=== PATIENT | female | born 1940 | race Caucasian/White ===

== ENCOUNTER 2024-08-15 04:28 | Emergency (ER) | payer MEDICARE, OTHER ==
[~2024-08-15] VITALS: Ht 165.1 cm; Wt 67.5 kg
[2024-08-15] MEDS ORDERED: OMEPRAZOLE20 MG PO (05:55)
[2024-08-15] MEDS ORDERED: ATORVASTATIN CA80 MG PO (05:55)
[2024-08-15] MEDS ORDERED: CALCIUM 600 MG1 EAC8 PO (05:55)
[2024-08-15] MEDS ORDERED: LOSARTAN POTAS100 MG PO (05:55)
[2024-08-15] MEDS ORDERED: LEVOTHYROXINE50 MCG PO (05:55)
[2024-08-15 05:56] LABS: BILIRUBIN, URINE NEGATIVE (negative); BLOOD/HGB, URINE TRACE-I (Negative); KETONE, URINE NEGATIVE (Negative); LEUK ESTERASE, URINE MODERATE (negative); NITRITE, URINE NEGATIVE (negative); PH, URINE 6.5 (5-7)
[2024-08-15] MEDS ORDERED: QUETIAPINE FUMA50 MG PO (05:56)
[2024-08-15] MEDS ORDERED: VITAMIN B-121000 MC1 PO (05:56)
[2024-08-15 06:13] LABS: CASTS, URINE NONE SEEN \\lpf; CRYSTALS, URINE NONE SEEN (0-1+); EPITHELIAL CELLS, URINE SQUAMOUS 2+ /lpf (0-1+); RED BLOOD CELLS, URINE 0-1 /hpf (0-5); WHITE BLOOD CELLS, URINE 41-50 /HPF (0-5)
[2024-08-15 06:14] LABS: BACTERIA, URINE 2+ /hpf (negative); COLLECTION TYPE, URINE CLEAN CATCH; REFLEX CULTURE, URINE No (No)
[2024-08-15] MEDS ORDERED: MACROBID 100 M100 MG PO (06:25)
[2024-08-15] MEDS ORDERED: NITROFURANTOIN MONOHYD MACROCR 100 MG CAP PO ONE (06:30)
[2024-08-15 09:26] VITALS: BP 134/82
== END 2024-08-15 09:26 ==
LOC: ED 04:28
PROVIDERS: Internal Medicine
DX: S00.03XA Contusion of scalp, initial encounter (principal); N39.0 Urinary tract infection, site not specified; I10 Essential (primary) hypertension; Z91.012 Allergy to eggs; Z79.890 Hormone replacement therapy; Z79.899 Other long term (current) drug therapy; W18.30XA Fall on same level, unspecified, initial encounter
CPT/HCPCS: 70450; 71045; 72125; 72170; 81001; 87088; 99285-25